=== PATIENT | female | born 1945 | race Caucasian/White ===

== ENCOUNTER 2019-11-18 06:35 | Day surgery (SDC) | payer MEDICARE, BC ==
[~2019-11-18] VITALS: Ht 172.7 cm; Wt 75.9 kg
[~2019-11-18 06:35] MED LIST: ATIVAN0.5 MG PO; CELEXA20 MG PO; FOLIC ACID1 MG PO; HYDROCHLOROTH12.5 M1 PO; K-DUR20 MEQ PO; METOPROLOL TART50 MG PO; MOBIC7.5 MG PO; ONDANSETRON4 MG/2 M3 PO; PRAVACHOL80 MG PO; PROVENTIL HFA6.7 GM INH; PROVENTIL/2.5 MG/3 M INH
[2019-11-18 07:21] LABS: ANION GAP 8.7 mmol/L (8-16); CALCIUM 9.6 mg/dL (8.5-10.1); CARBON DIOXIDE 33.9 mmol/L (21.0-32.0); CREATININE - SERUM 1.1 mg/dL (0.6-1.3); POTASSIUM - SERUM 3.6 mmol/L (3.5-5.1)
[2019-11-18 07:40] VITALS: BP 110/70; Ht 172.7 cm; Wt 75.9 kg
[2019-11-18] MEDS ORDERED: ANORO ELLIPTA1 EACH INH (07:52)
[2019-11-18 07:56] LABS: HEMATOCRIT 42.5 % (36.0-48.0); HEMOGLOBIN 14.3 g/dL (12-16); MCH 33.2 pg (26.0-34.0); MCHC 33.6 g/dL (31.0-37.0); MCV 98.6 fL (80.0-100.0); MEAN PLATELET VOLUME 9.7 fL (7.4-10.4); RBC 4.31 10x6/uL (4.00-5.40); RDW 12.9 % (11.5-14.5); WBC 5.6 10x3/uL (4.8-10.8)
[2019-11-18] MEDS ORDERED: IRBESARTAN/HCTZ PO (07:57)
[2019-11-18] MEDS ORDERED: MERIBIN5 MG PO (07:58)
[2019-11-18] MEDS ORDERED: CALTRATE+D3 PL1 EACH PO (07:58)
[2019-11-18] MEDS ORDERED: CRANBERRY PO (07:58)
[2019-11-18] MEDS ORDERED: PROBIOTIC BLEN1 EACH PO (07:59)
[2019-11-18] MEDS ORDERED: OMEPRAZOLE20 M1 PO (07:59)
[2019-11-18] MEDS ORDERED: NAPROXEN SODIU220 M1 PO (08:00)
--- NOTE | 2019-11-18 14:47 | NUR ---
0951 IV DC'D. CATHETER TIP INTACT. NO BLEEDING AT SITE. WRAPPED SITE WITH COBAN. PT VOICES AN ALLERGY TO [place]. DISCHARGE INSTRUCTIONS REVIEWED WITH PT WHO VOICES UNDERSTANDING OF INSTRUCTIONS.
--- NOTE | 2019-11-21 11:44 | OP ---
PATIENT NAME: JOSEPHINE URENA MEDICAL RECORD: [id number] :47 [facility]ATION:[facility] ADMISSION DATE: SURGEON: MAREN WOO DO DATE OF OPERATION: 11/18/2019 PROCEDURE: Colonoscopy with biopsies. INDICATIONS FOR PROCEDURE: History of ulcerative colitis. SCOPE: Olympus video pediatric colonoscope. MEDICATIONS: Propofol 280 mg IV per anesthesia. WITHDRAWAL TIME: 11 minutes. ESTIMATED BLOOD LOSS: Minimal. COMPLICATIONS: None. FINDINGS: Informed consent was given. The patient was made comfortable with the above medication. After reaching an adequate level of sedation by slow IV push, the patient was placed on her left side. A digital rectal examination was performed and was normal. The endoscope was then advanced under direct visualization through the rectum to the cecum, confirmed by the presence of the appendiceal orifice and ileocecal valve. The endoscope was slowly withdrawn and the mucosa was carefully examined. The prep quality was good. There were no polyps visualized on today's examination. There were a few scattered diverticula noted throughout the entire colon. There were small grade I internal hemorrhoids present upon retroflexion in the rectum. Throughout the entire colon, there was evidence of very mild and controlled ulcerative colitis involving all segments of the colon. Random biopsies were taken in all segments to rule out any dysplasia of which there was none obviously seen endoscopically. The endoscope was withdrawn from the patient. The patient tolerated the procedure well and there were no complications. IMPRESSION: 1. Mild ulcerative colitis involving the entire colon. 2. Mild diverticulosis. 3. Grade I internal hemorrhoids without bleeding. PLAN AND RECOMMENDATIONS: 1. Discharge home when recovery parameters are met. 2. Follow up biopsy specimen results. 3. High fiber diet. 4. Continue current medications. 5. Recall colonoscopy in 3 years regarding history of ulcerative colitis. 6. Regarding her medications, we will switch back to sulfasalazine, which is a more cost effective option for the patient. 7. Follow up in GI clinic as scheduled. TRANSINT:[id number] Voice Confirmation ID: [id number] DOCUMENT ID: [id number] OPERATIVE REPORT [id number] JOSEPHINE URENA MAREN WOO DO at 1144 CC: [id number] DICTATION DATE: 11/18/19913 MATHEMATICS FACULTY MEMBER: 11/18/19 1235 [facility] 11/18/19 [facility] [address] [id number]
== END 2019-11-18 10:04 | disposition home or self-care (01) ==
LOC: D.OPS 06:35
PROVIDERS: Anesthesiology; ATTEND Internal Medicine Gastroenterology
DX: Z87.19 Personal history of other diseases of the digestive system (principal)